=== PATIENT | female | born 1935 | race Caucasian/White ===

== ENCOUNTER 2016-10-10 08:35 | Inpatient (IN) | payer MEDICARE, MEDICAID ==
[2016-10-10] MEDS: TRAMADOL 50 MG PO PRN (20:22)
[2016-10-11] MEDS: LEVOTHYROXINE 100 MCG PO SCH (06:36)
[2016-10-11] MEDS: Aspirin 81 MG Tab.EC PO SCH (08:20)
[2016-10-11] MEDS: Cholecalciferol (Vitamin D3) 1,000 Unit Tab PO SCH (08:20)
[2016-10-11] MEDS: Multivitamins with Iron/Calcium/Folic Acid/Minerals Tab PO SCH (08:20)
[2016-10-11] MEDS: Ferrous Sulfate 325 MG Tab PO SCH (08:20)
[2016-10-11] MEDS: Enoxaparin 30 MG/0.3 ML Syringe SUBCUT SCH (08:21)
[2016-10-11] MEDS: METOPROLOL SUCCINATE 50 MG PO SCH (08:21)
--- NOTE | 2016-10-11 13:37 | PCM.SN ---
- Free Text/Narrative Note: Patient only voiding once a day and dry in between admits she doesn't like to drink water per nursing. Bladder scan ordered she did have a positive urine clt but had no symptoms of UTI so no antibiotics ordered. Patient having a difficult time with transfers, PT working with her currently.
[2016-10-11] MEDS: Melatonin 3 MG Tab PO SCH (19:35)
[2016-10-11] MEDS: TRAMADOL 50 MG PO PRN (19:36)
[2016-10-12] MEDS: Acetaminophen 325 MG Tab PO PRN ×2 (00:02→19:48)
[2016-10-12] MEDS: LEVOTHYROXINE 100 MCG PO SCH (12:07)
[2016-10-12] MEDS: Ferrous Sulfate 325 MG Tab PO SCH (12:07)
[2016-10-12] MEDS: Enoxaparin 30 MG/0.3 ML Syringe SUBCUT SCH (12:08)
[2016-10-12] MEDS: Cholecalciferol (Vitamin D3) 1,000 Unit Tab PO SCH (12:08)
[2016-10-12] MEDS: Aspirin 81 MG Tab.EC PO SCH (12:08)
[2016-10-12] MEDS: Multivitamins with Iron/Calcium/Folic Acid/Minerals Tab PO SCH (12:08)
[2016-10-12] MEDS: METOPROLOL SUCCINATE 50 MG PO SCH (12:08)
[2016-10-12] MEDS: Melatonin 3 MG Tab PO SCH (19:48)
[2016-10-12] MEDS: TRAMADOL 50 MG PO PRN (21:45)
[2016-10-13] MEDS: Acetaminophen 325 MG Tab PO PRN ×2 (02:14→19:55)
[2016-10-13] MEDS: LEVOTHYROXINE 100 MCG PO SCH (07:21)
[2016-10-13] MEDS: Aspirin 81 MG Tab.EC PO SCH (07:44)
[2016-10-13] MEDS: METOPROLOL SUCCINATE 50 MG PO SCH (07:44)
[2016-10-13] MEDS: Cholecalciferol (Vitamin D3) 1,000 Unit Tab PO SCH (07:44)
[2016-10-13] MEDS: Multivitamins with Iron/Calcium/Folic Acid/Minerals Tab PO SCH (07:45)
[2016-10-13] MEDS: Ferrous Sulfate 325 MG Tab PO SCH (07:45)
[2016-10-13] MEDS: Melatonin 3 MG Tab PO SCH (19:55)
[2016-10-13] MEDS: TRAMADOL 50 MG PO PRN (22:20)
[2016-10-14] MEDS: LEVOTHYROXINE 100 MCG PO SCH (06:27)
[2016-10-14 06:53] LABS: BASOPHILS PERCENT AUTO 0.6 % (0.2-1.2); EOSINOPHILS PERCENT AUTO 5.6 % (0.0-4.0); HEMOGLOBIN 9.1 g/dL (12.0-16.0); LYMPHOCYTES PERCENT AUTO 13.2 % (25.0-50.0); MEAN CORPUSCULAR HEMOGLOBIN 22.6 pg (26.0-32.0); MEAN CORPUSCULAR HGB CONC 30.3 g/dL (32.0-36.0); MEAN CORPUSCULAR VOLUME 74.4 fL (78.0-93.0); MONOCYTES PERCENT AUTO 8.2 % (2.0-11.0); NEUTROPHILS PERCENT AUTO 72.4 % (50.0-80.0); RED BLOOD CELL COUNT 4.03 x10^6/uL (4.00-5.50)
[2016-10-14 07:00] LABS: CALCIUM 8.6 mg/dL (8.5-10.1); CREATININE 1.1 mg/dL (0.55-1.02); EST CRCL DRUG DOSING (CG) 33.18 mL/min
[2016-10-14 07:05] LABS: RDW CV 18.4 % (10.0-15.0)
[2016-10-14] MEDS: Ferrous Sulfate 325 MG Tab PO SCH (08:46)
[2016-10-14] MEDS: METOPROLOL SUCCINATE 50 MG PO SCH (08:46)
[2016-10-14] MEDS: Aspirin 81 MG Tab.EC PO SCH (08:46)
[2016-10-14] MEDS: Cholecalciferol (Vitamin D3) 1,000 Unit Tab PO SCH (08:46)
[2016-10-14] MEDS: Multivitamins with Iron/Calcium/Folic Acid/Minerals Tab PO SCH (08:46)
[2016-10-14] MEDS: Acetaminophen 325 MG Tab PO PRN (16:29)
[2016-10-14] MEDS: Melatonin 3 MG Tab PO SCH (19:34)
[2016-10-14] MEDS: TRAMADOL 50 MG PO PRN (19:34)
[2016-10-15] MEDS: TRAMADOL 50 MG PO PRN ×2 (03:25→23:02)
[2016-10-15] MEDS: Acetaminophen 325 MG Tab PO PRN (03:25)
[2016-10-15] MEDS: LEVOTHYROXINE 100 MCG PO SCH (06:28)
[2016-10-15] MEDS: Ferrous Sulfate 325 MG Tab PO SCH (07:52)
[2016-10-15] MEDS: Cholecalciferol (Vitamin D3) 1,000 Unit Tab PO SCH (07:52)
[2016-10-15] MEDS: METOPROLOL SUCCINATE 50 MG PO SCH (07:52)
[2016-10-15] MEDS: Aspirin 81 MG Tab.EC PO SCH (07:52)
[2016-10-15] MEDS: Multivitamins with Iron/Calcium/Folic Acid/Minerals Tab PO SCH (07:52)
[2016-10-15] MEDS: Melatonin 3 MG Tab PO SCH (20:35)
[2016-10-16] MEDS: Acetaminophen 325 MG Tab PO PRN ×2 (00:51→06:46)
[2016-10-16] MEDS: ALPRAZOLAM 0.25 MG PO PRN ×2 (00:51→22:35)
[2016-10-16] MEDS: LEVOTHYROXINE 100 MCG PO SCH (06:46)
[2016-10-16] MEDS: Multivitamins with Iron/Calcium/Folic Acid/Minerals Tab PO SCH (07:50)
[2016-10-16] MEDS: METOPROLOL SUCCINATE 50 MG PO SCH (07:50)
[2016-10-16] MEDS: Cholecalciferol (Vitamin D3) 1,000 Unit Tab PO SCH (07:50)
[2016-10-16] MEDS: Aspirin 81 MG Tab.EC PO SCH (07:51)
[2016-10-16] MEDS: Ferrous Sulfate 325 MG Tab PO SCH (07:51)
--- NOTE | 2016-10-16 16:51 | PN ---
Progress Note for MADDISON TRAN Date: 10/16/2016 Room #: VM.203 SUBJECTIVE: This is an 81-year-old on swing bed after a fall at home with rhabdomyolysis. CK level is still mildly elevated on Friday, but renal function was normal. She has been having a difficult time with getting up and transferring, they are needing to use the lift. She states she had help at home, but the social studies department chair had heard she had changed her same clothes in 1 week. She states she did not need the bathing help at that time, but due to her underlying cerebral palsy and physical limitations, she was not able to care for herself. She had no source. She states she was driving earlier this fall. She has not had any fevers. She has only been voiding about once a day but is not drinking much. OBJECTIVE: Vital Signs: Her temperature is 97.9, pulse 79, blood pressure 123/66, respiratory rate 20, and O2 of 97% on room air. General: She is in no acute distress. Heart: Regular rate and rhythm. Lungs: Sounds are clear to auscultation bilaterally without crackles or wheezes. Abdomen: Positive bowel sounds. Soft and nontender. Extremities: Warm and dry. No edema. The right leg is slightly contracted. I cannot straighten her knee. There is some atrophy. Left leg also has some limited flexion. Mental Status: Alert and orientated x3, but her judgment is quite poor. ASSESSMENT: 1. Acute renal failure and rhabdomyolysis, resolving. We will repeat again lab work again tomorrow. 2. Mechanical fall at home with impaired mobility due to cerebral palsy. The patient is working with therapies. 3. Acute on chronic anemia. Hemoglobin level has been stable, now up to 9.1. She has had chronic iron deficiency and now is on oral iron. 4. Hypothyroidism, treated. 5. Longstanding cognitive disorders, cerebral palsy, and asymptomatic Escherichia bacteria. PLAN: I had a long discussion with the patient and in the end when talking about the prison, she did threaten that she would just rather end her life than go over there because of smell. She otherwise has shown some poor decision making and concern for cognition. Therefore, we will get a full OT assessment. Family conference is scheduled for Friday. I feel this patient would be a vulnerable adult to return home and not really safe in her previous living situation. MKA: 10/16/2016 16:18:37 MODL: 10/16/2016 16:43:36 /[id number]
[2016-10-16] MEDS: Melatonin 3 MG Tab PO SCH (19:37)
[2016-10-16] MEDS: TRAMADOL 50 MG PO PRN (22:35)
[2016-10-17] MEDS: Acetaminophen 325 MG Tab PO PRN (05:22)
[2016-10-17] MEDS: LEVOTHYROXINE 100 MCG PO SCH (06:04)
[2016-10-17 06:52] LABS: BASOPHILS PERCENT AUTO 0.6 % (0.2-1.2); EOSINOPHILS PERCENT AUTO 4.6 % (0.0-4.0); HEMATOCRIT 31.3 % (33.0-47.0); HEMOGLOBIN 9.5 g/dL (12.0-16.0); LYMPHOCYTES PERCENT AUTO 13.9 % (25.0-50.0); MEAN CORPUSCULAR HEMOGLOBIN 22.8 pg (26.0-32.0); MEAN CORPUSCULAR HGB CONC 30.4 g/dL (32.0-36.0); MONOCYTES PERCENT AUTO 10.2 % (2.0-11.0); NEUTROPHILS PERCENT AUTO 70.7 % (50.0-80.0); RDW CV 18.7 % (10.0-15.0); RED BLOOD CELL COUNT 4.17 x10^6/uL (4.00-5.50)
[2016-10-17 07:10] LABS: MEAN CORPUSCULAR VOLUME 75.1 fL (78.0-93.0)
[2016-10-17 07:15] LABS: CALCIUM 8.9 mg/dL (8.5-10.1); CREATININE 1.2 mg/dL (0.55-1.02); EST CRCL DRUG DOSING (CG) 30.41 mL/min
[2016-10-17] MEDS: METOPROLOL SUCCINATE 50 MG PO SCH (07:43)
[2016-10-17] MEDS: Multivitamins with Iron/Calcium/Folic Acid/Minerals Tab PO SCH (07:43)
[2016-10-17] MEDS: Cholecalciferol (Vitamin D3) 1,000 Unit Tab PO SCH (07:43)
[2016-10-17] MEDS: Ferrous Sulfate 325 MG Tab PO SCH (07:43)
[2016-10-17] MEDS: Aspirin 81 MG Tab.EC PO SCH (07:44)
[2016-10-17] MEDS: Melatonin 3 MG Tab PO SCH (19:57)
[2016-10-17] MEDS: TRAMADOL 50 MG PO PRN (22:53)
[2016-10-17] MEDS: ALPRAZOLAM 0.25 MG PO PRN (22:54)
[2016-10-18] MEDS: ALPRAZOLAM 0.25 MG PO PRN ×2 (02:57→19:38)
[2016-10-18] MEDS: Acetaminophen 325 MG Tab PO PRN ×3 (02:57→17:27)
[2016-10-18] MEDS: LEVOTHYROXINE 100 MCG PO SCH (07:24)
[2016-10-18] MEDS: Cholecalciferol (Vitamin D3) 1,000 Unit Tab PO SCH (07:24)
[2016-10-18] MEDS: Aspirin 81 MG Tab.EC PO SCH (07:25)
[2016-10-18] MEDS: METOPROLOL SUCCINATE 50 MG PO SCH (07:25)
[2016-10-18] MEDS: Multivitamins with Iron/Calcium/Folic Acid/Minerals Tab PO SCH (07:25)
[2016-10-18] MEDS: Ferrous Sulfate 325 MG Tab PO SCH (07:25)
[2016-10-18] MEDS: Sulfamethoxazole/Trimethoprim 400-80 MG Tab PO SCH ×2 (17:20→19:39)
[2016-10-18 17:31] LABS: BASOPHILS PERCENT AUTO 0.3 % (0.2-1.2); HEMATOCRIT 32.8 % (33.0-47.0); HEMOGLOBIN 10.1 g/dL (12.0-16.0); LYMPHOCYTES PERCENT AUTO 7.5 % (25.0-50.0); MEAN CORPUSCULAR HEMOGLOBIN 22.9 pg (26.0-32.0); MEAN CORPUSCULAR HGB CONC 30.8 g/dL (32.0-36.0); MEAN CORPUSCULAR VOLUME 74.2 fL (78.0-93.0); MONOCYTES PERCENT AUTO 9.6 % (2.0-11.0); NEUTROPHILS PERCENT AUTO 81.6 % (50.0-80.0); RED BLOOD CELL COUNT 4.42 x10^6/uL (4.00-5.50)
--- NOTE | 2016-10-18 17:36 | PN ---
Progress Note for MADDISON TRAN Date: 10/18/2016 Room #: VM.203 SUBJECTIVE: This is an 81-year-old seen today for the purposes of a family conference. We met the patient at noon, discussed her progress. The patient had only been up walking with therapy just yesterday, she walked about 4 to 6 feet and then had to take breaks. Today her knee is bothering her after walking. She is requiring assistance for transfers. She has expressed to us numerous times that she is not happy here, would like to go home. She is completely refusing the [facility]. She has not had any fevers, but lab work done yesterday had showed a slight increase in her white count to 10.2. Her hemoglobin and kidney function had been stable. She is not having any cough. No breathing problems. No abdominal pain. Otherwise, she did have asymptomatic bacteriuria with E. coli on her acute admission. She was never treated with antibiotics. She has always minimized her symptoms. She is voiding only about once a day, small amounts, but was not having significant residual on bladder scan. OBJECTIVE: Vital signs: Her temperature at 6:00 a.m. this morning was 97.7. I was just called by nursing at 4:30 with a temperature of 101.3. Her pulse was 80, blood pressure 145/66, respiratory rate 20, O2 of 97% on room air. General: She does appear quite pale, full physical assessment was not done as this was a family meeting. ASSESSMENT AND PLAN: 1. Acute fever. The nursing states the patient has not felt well all day, feeling hot and cold. She had not mentioned any of this in her family conference, so I had not performed an exam, now that she has spiked a fever, I recommend labs and blood cultures, and a UA. Given the results of the last urine culture, I will empirically start her on some Bactrim after urine and blood have been drawn, single strength b.i.d. for at least 5 days. I will sign her out to Dr. Bettencourt. 2. Chronic kidney disease with baseline creatinine down to 1.1 and 1.2. Her rhabdomyolysis has resolved. We will continue to monitor. 3. Deconditioning and impaired gait, due to underlying cerebral palsy and recent fall at home. We will continue having her work with therapies. 4. Acute on chronic anemia. Anemia seems stable, she will continue iron. 5. Hypothyroidism, treated. 6. Essential hypertension. Blood pressure is slightly elevated. We will continue her home metoprolol doses. 7. 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 She is recommending 24 hour supervision. Short-term memory has been poor and she has very poor judgment and lack of insight into her disability. PLAN: At this point, we will start antibiotics, we will continue to encourage her to accept the therapy and cares. She is actually been good about working with therapies. She just so wanting to get home, however, with her physical limitations of not even being able to get out of bed, I do not see this as a possibility. The social worker clinical was present. The physical therapist was present and agreed. Her two daughters were present and agreed. We did also discuss the possibility of guardianship and going to the [facility], however, due to financial reasons it sounds like this is not going to be the most doable with the family. The best option would just continue to get treatment in the hospital and ultimately except [facility] care if needed. We will continue to follow. MKA: 10/18/2016 16:49:15 MODL: 10/18/2016 17:11:05 /[id number]
[2016-10-18 17:37] LABS: RDW CV 19.9 % (10.0-15.0)
[2016-10-18 17:46] LABS: CALCIUM 9.5 mg/dL (8.5-10.1); CREATININE 1.3 mg/dL (0.55-1.02); EST CRCL DRUG DOSING (CG) 28.07 mL/min
[2016-10-18] MEDS: Melatonin 3 MG Tab PO SCH (19:38)
[2016-10-18 21:20] LABS: APPEARANCE,URINE SLIGHTLY CLOUDY (CLEAR); BILIRUBIN,URINE NEGATIVE (NEGATIVE); GLUCOSE,URINE NEGATIVE (NEGATIVE); KETONES,URINE NEGATIVE (NEGATIVE); LEUKOCYTE ESTERASE,URINE SMALL (NEGATIVE); NITRITE,URINE NEGATIVE (NEGATIVE); OCCULT BLOOD,URINE SMALL (NEGATIVE); PH,URINE 7.5 (5.0-8.0); PROTEIN,URINE 100 mg/dL (NEGATIVE); UROBILINOGEN,URINE 0.2 EU/dL (0.2)
[2016-10-18 21:36] LABS: BACTERIA,URINE FEW /HPF (NEGATIVE); MUCUS,URINE RARE /LPF (NEGATIVE)
[2016-10-19] MEDS: ALPRAZOLAM 0.25 MG PO PRN (02:47)
[2016-10-19] MEDS: Acetaminophen 325 MG Tab PO PRN (05:15)
[2016-10-19] MEDS: LEVOTHYROXINE 100 MCG PO SCH (06:34)
[2016-10-19] MEDS: Ferrous Sulfate 325 MG Tab PO SCH (07:44)
[2016-10-19] MEDS: Aspirin 81 MG Tab.EC PO SCH (07:44)
[2016-10-19] MEDS: Sulfamethoxazole/Trimethoprim 400-80 MG Tab PO SCH ×2 (07:44→19:34)
[2016-10-19] MEDS: Multivitamins with Iron/Calcium/Folic Acid/Minerals Tab PO SCH (07:44)
[2016-10-19] MEDS: METOPROLOL SUCCINATE 50 MG PO SCH (07:45)
[2016-10-19] MEDS: Cholecalciferol (Vitamin D3) 1,000 Unit Tab PO SCH (07:45)
[2016-10-19] MEDS: TRAMADOL 50 MG PO PRN (16:21)
[2016-10-19] MEDS: Melatonin 3 MG Tab PO SCH (19:34)
[2016-10-20] MEDS: TRAMADOL 50 MG PO PRN ×2 (05:26→09:46)
[2016-10-20] MEDS: LEVOTHYROXINE 100 MCG PO SCH (06:28)
[2016-10-20] MEDS: Cholecalciferol (Vitamin D3) 1,000 Unit Tab PO SCH (08:38)
[2016-10-20] MEDS: Sulfamethoxazole/Trimethoprim 400-80 MG Tab PO SCH ×2 (08:39→19:54)
[2016-10-20] MEDS: Aspirin 81 MG Tab.EC PO SCH (08:39)
[2016-10-20] MEDS: METOPROLOL SUCCINATE 50 MG PO SCH (08:39)
[2016-10-20] MEDS: Multivitamins with Iron/Calcium/Folic Acid/Minerals Tab PO SCH (08:39)
[2016-10-20] MEDS: Ferrous Sulfate 325 MG Tab PO SCH (08:39)
[2016-10-20] MEDS: Melatonin 3 MG Tab PO SCH (19:54)
[2016-10-21] MEDS: LEVOTHYROXINE 100 MCG PO SCH (06:13)
[2016-10-21] MEDS: Multivitamins with Iron/Calcium/Folic Acid/Minerals Tab PO SCH (07:48)
[2016-10-21] MEDS: Ferrous Sulfate 325 MG Tab PO SCH (07:48)
[2016-10-21] MEDS: Cholecalciferol (Vitamin D3) 1,000 Unit Tab PO SCH (07:49)
[2016-10-21] MEDS: METOPROLOL SUCCINATE 50 MG PO SCH (07:49)
[2016-10-21] MEDS: Aspirin 81 MG Tab.EC PO SCH (07:49)
[2016-10-21] MEDS: Sulfamethoxazole/Trimethoprim 400-80 MG Tab PO SCH ×2 (07:49→20:05)
--- NOTE | 2016-10-21 08:46 | PCM.SN ---
- Free Text/Narrative Note: Patient denies coughing, no fevers since Friday. No abdominal pain or dysuria. Doing well on Bactrim plan to d/c it after 5 days of treatment with last dose Friday.
[2016-10-21] MEDS: Melatonin 3 MG Tab PO SCH (20:05)
[2016-10-22] MEDS: TRAMADOL 50 MG PO PRN ×2 (00:19→20:43)
[2016-10-22] MEDS: ALPRAZOLAM 0.25 MG PO PRN ×2 (00:19→20:43)
[2016-10-22 06:28] LABS: BASOPHILS PERCENT AUTO 0.7 % (0.2-1.2); HEMATOCRIT 28.1 % (33.0-47.0); HEMOGLOBIN 8.8 g/dL (12.0-16.0); LYMPHOCYTES PERCENT AUTO 16.7 % (25.0-50.0); MEAN CORPUSCULAR HEMOGLOBIN 23.3 pg (26.0-32.0); MEAN CORPUSCULAR HGB CONC 31.3 g/dL (32.0-36.0); MEAN CORPUSCULAR VOLUME 74.5 fL (78.0-93.0); MONOCYTES PERCENT AUTO 13.1 % (2.0-11.0); NEUTROPHILS PERCENT AUTO 63.7 % (50.0-80.0); RDW CV 19.3 % (10.0-15.0); RED BLOOD CELL COUNT 3.77 x10^6/uL (4.00-5.50)
[2016-10-22 06:43] LABS: CALCIUM 8.6 mg/dL (8.5-10.1); CREATININE 1.7 mg/dL (0.55-1.02); EOSINOPHILS PERCENT AUTO 5.8 % (0.0-4.0); EST CRCL DRUG DOSING (CG) 21.47 mL/min
[2016-10-22] MEDS: LEVOTHYROXINE 100 MCG PO SCH (07:45)
[2016-10-22] MEDS: METOPROLOL SUCCINATE 50 MG PO SCH (07:45)
[2016-10-22] MEDS: Sulfamethoxazole/Trimethoprim 400-80 MG Tab PO SCH (07:45)
[2016-10-22] MEDS: Cholecalciferol (Vitamin D3) 1,000 Unit Tab PO SCH (07:45)
[2016-10-22] MEDS: Multivitamins with Iron/Calcium/Folic Acid/Minerals Tab PO SCH (07:46)
[2016-10-22] MEDS: Aspirin 81 MG Tab.EC PO SCH (07:46)
[2016-10-22] MEDS: Ferrous Sulfate 325 MG Tab PO SCH (07:46)
[2016-10-22] MEDS: Melatonin 3 MG Tab PO SCH (20:43)
[2016-10-23] MEDS: LEVOTHYROXINE 100 MCG PO SCH (06:31)
[2016-10-23 07:08] LABS: HEMATOCRIT 29.2 % (33.0-47.0); HEMOGLOBIN 8.9 g/dL (12.0-16.0); MEAN CORPUSCULAR HEMOGLOBIN 22.9 pg (26.0-32.0); MEAN CORPUSCULAR HGB CONC 30.5 g/dL (32.0-36.0); MEAN CORPUSCULAR VOLUME 75.1 fL (78.0-93.0); RDW CV 18.7 % (10.0-15.0); RED BLOOD CELL COUNT 3.89 x10^6/uL (4.00-5.50)
[2016-10-23 07:27] LABS: CALCIUM 8.8 mg/dL (8.5-10.1); CREATININE 1.6 mg/dL (0.55-1.02); EST CRCL DRUG DOSING (CG) 22.81 mL/min
[2016-10-23 07:50] LABS: BASOPHILS PERCENT MAN 2 % (0-1); EOSINOPHILS PERCENT MAN 5 % (0-4); SEG NEUTROPHILS PERCENT MAN 70 % (50-80); TOTAL CELLS COUNTED 100
[2016-10-23 07:52] LABS: OVALOCYTES MODERATE
[2016-10-23] MEDS: Cholecalciferol (Vitamin D3) 1,000 Unit Tab PO SCH (08:11)
[2016-10-23] MEDS: METOPROLOL SUCCINATE 50 MG PO SCH (08:11)
[2016-10-23] MEDS: Ferrous Sulfate 325 MG Tab PO SCH (08:11)
[2016-10-23] MEDS: Aspirin 81 MG Tab.EC PO SCH (08:11)
[2016-10-23] MEDS: Multivitamins with Iron/Calcium/Folic Acid/Minerals Tab PO SCH (08:11)
[2016-10-23] MEDS: Acetaminophen 325 MG Tab PO PRN (19:16)
[2016-10-23] MEDS: TRAMADOL 50 MG PO PRN (19:16)
[2016-10-23] MEDS: Melatonin 3 MG Tab PO SCH (19:16)
[2016-10-23] MEDS: ALPRAZOLAM 0.25 MG PO PRN (19:16)
[2016-10-24] MEDS: LEVOTHYROXINE 100 MCG PO SCH (06:03)
[2016-10-24] MEDS: Cholecalciferol (Vitamin D3) 1,000 Unit Tab PO SCH (07:34)
[2016-10-24] MEDS: METOPROLOL SUCCINATE 50 MG PO SCH (07:35)
[2016-10-24] MEDS: Aspirin 81 MG Tab.EC PO SCH (07:35)
[2016-10-24] MEDS: Ferrous Sulfate 325 MG Tab PO SCH (07:35)
[2016-10-24] MEDS: Multivitamins with Iron/Calcium/Folic Acid/Minerals Tab PO SCH (07:35)
[2016-10-24] MEDS: Melatonin 3 MG Tab PO SCH (19:26)
[2016-10-25] MEDS: LEVOTHYROXINE 100 MCG PO SCH (06:06)
[2016-10-25] MEDS: Ferrous Sulfate 325 MG Tab PO SCH (07:32)
[2016-10-25] MEDS: METOPROLOL SUCCINATE 50 MG PO SCH (07:32)
[2016-10-25] MEDS: Cholecalciferol (Vitamin D3) 1,000 Unit Tab PO SCH (07:32)
[2016-10-25] MEDS: Aspirin 81 MG Tab.EC PO SCH (07:33)
[2016-10-25] MEDS: Multivitamins with Iron/Calcium/Folic Acid/Minerals Tab PO SCH (07:33)
[2016-10-25] MEDS: Polyethylene Glycol 3350 Powder 17 GM Packet PO SCH (10:52)
[2016-10-25] MEDS: Acetaminophen 325 MG Tab PO PRN (14:45)
[2016-10-25] MEDS: Melatonin 3 MG Tab PO SCH (19:34)
[2016-10-25] MEDS: ALPRAZOLAM 0.25 MG PO PRN (19:34)
[2016-10-26] MEDS: LEVOTHYROXINE 100 MCG PO SCH (07:20)
[2016-10-26] MEDS: Polyethylene Glycol 3350 Powder 17 GM Packet PO SCH (07:30)
[2016-10-26] MEDS: Ferrous Sulfate 325 MG Tab PO SCH (07:32)
[2016-10-26] MEDS: METOPROLOL SUCCINATE 50 MG PO SCH (07:32)
[2016-10-26] MEDS: Multivitamins with Iron/Calcium/Folic Acid/Minerals Tab PO SCH (07:32)
[2016-10-26] MEDS: Cholecalciferol (Vitamin D3) 1,000 Unit Tab PO SCH (07:32)
[2016-10-26] MEDS: Aspirin 81 MG Tab.EC PO SCH (07:32)
[2016-10-26] MEDS: Melatonin 3 MG Tab PO SCH (19:34)
[2016-10-26] MEDS: ALPRAZOLAM 0.25 MG PO PRN (19:34)
[2016-10-27] MEDS: LEVOTHYROXINE 100 MCG PO SCH ×2 (05:56→07:41)
[2016-10-27] MEDS: Polyethylene Glycol 3350 Powder 17 GM Packet PO SCH (07:41)
[2016-10-27] MEDS: Cholecalciferol (Vitamin D3) 1,000 Unit Tab PO SCH (07:42)
[2016-10-27] MEDS: METOPROLOL SUCCINATE 50 MG PO SCH (07:42)
[2016-10-27] MEDS: Ferrous Sulfate 325 MG Tab PO SCH (07:43)
[2016-10-27] MEDS: Aspirin 81 MG Tab.EC PO SCH (07:43)
[2016-10-27] MEDS: Multivitamins with Iron/Calcium/Folic Acid/Minerals Tab PO SCH (07:43)
[2016-10-27] MEDS: ALPRAZOLAM 0.25 MG PO PRN (19:35)
[2016-10-27] MEDS: Melatonin 3 MG Tab PO SCH (19:35)
[2016-10-27] MEDS: TRAMADOL 50 MG PO PRN (21:21)
[2016-10-27] MEDS: Acetaminophen 325 MG Tab PO PRN (21:21)
[2016-10-28] MEDS: LEVOTHYROXINE 100 MCG PO SCH (06:39)
[2016-10-28] MEDS: Cholecalciferol (Vitamin D3) 1,000 Unit Tab PO SCH (07:40)
[2016-10-28] MEDS: Ferrous Sulfate 325 MG Tab PO SCH (07:40)
[2016-10-28] MEDS: Multivitamins with Iron/Calcium/Folic Acid/Minerals Tab PO SCH (07:41)
[2016-10-28] MEDS: Aspirin 81 MG Tab.EC PO SCH (07:41)
[2016-10-28] MEDS: METOPROLOL SUCCINATE 50 MG PO SCH (07:41)
[2016-10-28] MEDS: Polyethylene Glycol 3350 Powder 17 GM Packet PO SCH (07:41)
[2016-10-28] MEDS: Melatonin 3 MG Tab PO SCH (21:30)
[2016-10-28] MEDS: TRAMADOL 50 MG PO PRN (23:22)
[2016-10-29] MEDS: LEVOTHYROXINE 100 MCG PO SCH (06:28)
[2016-10-29] MEDS: Polyethylene Glycol 3350 Powder 17 GM Packet PO SCH (07:35)
[2016-10-29] MEDS: Cholecalciferol (Vitamin D3) 1,000 Unit Tab PO SCH (07:35)
[2016-10-29] MEDS: METOPROLOL SUCCINATE 50 MG PO SCH (07:35)
[2016-10-29] MEDS: Multivitamins with Iron/Calcium/Folic Acid/Minerals Tab PO SCH (07:36)
[2016-10-29] MEDS: Ferrous Sulfate 325 MG Tab PO SCH (07:36)
[2016-10-29] MEDS: Aspirin 81 MG Tab.EC PO SCH (07:36)
[2016-10-29] MEDS: Melatonin 3 MG Tab PO SCH (19:29)
--- NOTE | 2016-10-29 23:22 | DISCH ---
PRIMARY DISCHARGE DIAGNOSES: 1. Fall at home with acute rhabdomyolysis. 2. Acute renal failure secondary to rhabdomyolysis. 3. Acute on chronic anemia with history of iron deficiency. 4. Hypothyroidism. 5. Cognitive disorder. 6. Escherichia coli bacteremia treated. 7. Impaired gait secondary to cerebral palsy. REASON FOR THIS ADMISSION: On the date of admission, this 81-year-old female who had been in to the doctor for many years, was found down at home. She had an elevated CK and was in acute renal failure. She got IV fluids and her condition improved. She was found to have some urinary hesitancy and UA was done. Initially she was not having any symptoms and the culture did grow E coli, then she did spike a fever and had a repeat UA on 10/18. She was treated with Bactrim for 5 days at that point. Her fever resolved without any further problems. It was on the date of 10/18 that we had a family conference, patient was working with therapy but needed to be able to ambulate probably around 30 feet at home, she was unable to do this, she was totally unwilling to go to a assisted. We talked about getting a guardianship for the patient, as she was felt to be a vulnerable adult at home. The patient was working with OT and did have a cognitive assessment showing her to have mini-mental of 23/30 and 4.2/5.8 on her ACL requiring 24-hour supervision. The patient had made multiple threats during her stay that if she would go to the assisted, she would kill herself. I feel that currently she probably could not act on that as she is impaired with her mobility; however, I do feel that the chance of her bringing self-harm are not 0, therefore a level 2 screening was triggered for the patient. food preparation worker has been working with the patient and the family. We will also file for vulnerable adult for the patient as I feel she has placed herself at self-harm. Her judgment is very poor. She tells us that she can do things that she cannot. I have seen her walk with assistance of PT and there is just no way she can even walk 5 feet by herself, she is quite a fall risk and she is quite forgetful and unsafe in her own home. Otherwise during her stay here, she was continued on her same home medications. She was getting occasional tramadol for pain which she had been on for many years. She also had Xanax ordered to help with any agitation. LABORATORY DATA: Lab work was monitored and last hemoglobin was 8.9 on 10/23 but the hemoglobin is pending for tomorrow. Creatinine had bumped back up to 1.6 but again a creatinine is pending for tomorrow. The best creatinine was 1.1 and she had a history of chronic kidney disease as well. Otherwise, she was taking and tolerating iron. DISCHARGE PLANS AND INSTRUCTIONS: The patient is going over to self-pay swing, pending a level 2 screen and also the vulnerable adult evaluation. She is completely opposed to going over to the assisted. She thinks she can just go home by herself and she can walk right out of here which is entirely not true. Otherwise, the patient was on some stool softeners. She had some constipation during her stay which was probably due to the multivitamin with iron. PHYSICAL EXAMINATION: Vital Signs: Discharging vitals when I examined her temperature 98.5, pulse 84, blood pressure 130/85, respiratory rate 18, and O2 of 96% on room air. General: She is in no acute distress. Heart: Regular rate and rhythm. Lungs: Sounds are clear to auscultation bilaterally without crackles or wheezes. Extremities: She has right leg deformity which is not new with some contracture over the knee. She has no edema. Mental Status: She is alert, but she is disorientated to time. She is aware of the month as October; however, she thinks she has only been in the hospital like a week or so, like since [place] and really in reality she has been here over 3 weeks. She does remember me as her doctor. DISCHARGE PLANS AND INSTRUCTIONS: Going over to swing bed on self-pay. No medication changes are made today. counseling services manager to continue to follow. I did stress to her that it would be important to get up to the assisted where she could restart PT again, but again she continues to refuse this. CORA: 10/29/2016 17:05:55 MODL: 10/29/2016 23:12:44 /[id number]
[2016-10-30] MEDS: TRAMADOL 50 MG PO PRN (06:38)
[2016-10-30] MEDS: LEVOTHYROXINE 100 MCG PO SCH (06:39)
[2016-10-30] MEDS: Aspirin 81 MG Tab.EC PO SCH (07:48)
[2016-10-30] MEDS: METOPROLOL SUCCINATE 50 MG PO SCH (07:49)
[2016-10-30] MEDS: Multivitamins with Iron/Calcium/Folic Acid/Minerals Tab PO SCH (07:49)
[2016-10-30] MEDS: Cholecalciferol (Vitamin D3) 1,000 Unit Tab PO SCH (07:49)
[2016-10-30] MEDS: Polyethylene Glycol 3350 Powder 17 GM Packet PO SCH (07:49)
[2016-10-30] MEDS: Ferrous Sulfate 325 MG Tab PO SCH (07:49)
[2016-10-30] MEDS: Melatonin 3 MG Tab PO SCH ×2 (17:26→19:16)
[2016-10-30] MEDS: Acetaminophen 325 MG Tab PO PRN (23:10)
[2016-10-31] MEDS: Cholecalciferol (Vitamin D3) 1,000 Unit Tab PO SCH (07:23)
[2016-10-31] MEDS: Ferrous Sulfate 325 MG Tab PO SCH (07:24)
[2016-10-31] MEDS: LEVOTHYROXINE 100 MCG PO SCH (07:24)
[2016-10-31] MEDS: Aspirin 81 MG Tab.EC PO SCH (07:24)
[2016-10-31] MEDS: Multivitamins with Iron/Calcium/Folic Acid/Minerals Tab PO SCH (07:24)
[2016-10-31] MEDS: METOPROLOL SUCCINATE 50 MG PO SCH (07:24)
[2016-10-31] MEDS: Polyethylene Glycol 3350 Powder 17 GM Packet PO SCH ×2 (07:26→07:33)
[2016-10-31] MEDS: Melatonin 3 MG Tab PO SCH (19:35)
[2016-10-31] MEDS: TRAMADOL 50 MG PO PRN (21:48)
[2016-11-01] MEDS: LEVOTHYROXINE 100 MCG PO SCH (06:57)
[2016-11-01] MEDS: Cholecalciferol (Vitamin D3) 1,000 Unit Tab PO SCH (07:01)
[2016-11-01] MEDS: Multivitamins with Iron/Calcium/Folic Acid/Minerals Tab PO SCH (07:01)
[2016-11-01] MEDS: Ferrous Sulfate 325 MG Tab PO SCH (07:02)
[2016-11-01] MEDS: Metoprolol Succinate 25 MG Tab.ER (OWN SUPPLY) PO SCH (07:02)
[2016-11-01] MEDS: Aspirin 81 MG Tab.EC PO SCH (07:02)
[2016-11-01] MEDS: Polyethylene Glycol 3350 Powder 17 GM Packet PO SCH (07:03)
[2016-11-01] MEDS: Melatonin 3 MG Tab PO SCH (19:35)
[2016-11-01] MEDS: ALPRAZOLAM 0.25 MG PO PRN (19:35)
[2016-11-02] MEDS: LEVOTHYROXINE 100 MCG PO SCH (07:17)
[2016-11-02] MEDS: Polyethylene Glycol 3350 Powder 17 GM Packet PO SCH (08:33)
[2016-11-02] MEDS: Ferrous Sulfate 325 MG Tab PO SCH (08:33)
[2016-11-02] MEDS: Cholecalciferol (Vitamin D3) 1,000 Unit Tab PO SCH (08:33)
[2016-11-02] MEDS: Metoprolol Succinate 25 MG Tab.ER (OWN SUPPLY) PO SCH (08:33)
[2016-11-02] MEDS: Aspirin 81 MG Tab.EC PO SCH (08:33)
[2016-11-02] MEDS: Multivitamins with Iron/Calcium/Folic Acid/Minerals Tab PO SCH (08:33)
[2016-11-02] MEDS: Melatonin 3 MG Tab PO SCH (19:37)
[2016-11-02] MEDS: ALPRAZOLAM 0.25 MG PO PRN (19:37)
[2016-11-02] MEDS: TRAMADOL 50 MG PO PRN (21:36)
[2016-11-02] MEDS: Acetaminophen 325 MG Tab PO PRN (21:37)
[2016-11-03] MEDS: LEVOTHYROXINE 100 MCG PO SCH (06:20)
[2016-11-03] MEDS: Aspirin 81 MG Tab.EC PO SCH (08:27)
[2016-11-03] MEDS: Multivitamins with Iron/Calcium/Folic Acid/Minerals Tab PO SCH (08:27)
[2016-11-03] MEDS: Metoprolol Succinate 25 MG Tab.ER (OWN SUPPLY) PO SCH (08:27)
[2016-11-03] MEDS: Ferrous Sulfate 325 MG Tab PO SCH (08:27)
[2016-11-03] MEDS: Cholecalciferol (Vitamin D3) 1,000 Unit Tab PO SCH (08:27)
[2016-11-03] MEDS: Polyethylene Glycol 3350 Powder 17 GM Packet PO SCH (08:28)
[2016-11-03] MEDS: ALPRAZOLAM 0.25 MG PO PRN (19:33)
[2016-11-03] MEDS: Melatonin 3 MG Tab PO SCH (19:33)
[2016-11-04] MEDS: TRAMADOL 50 MG PO PRN ×2 (01:08→19:50)
[2016-11-04] MEDS: Acetaminophen 325 MG Tab PO PRN (01:09)
[2016-11-04] MEDS: LEVOTHYROXINE 100 MCG PO SCH ×2 (05:07→06:42)
[2016-11-04] MEDS: Metoprolol Succinate 25 MG Tab.ER (OWN SUPPLY) PO SCH (07:47)
[2016-11-04] MEDS: Aspirin 81 MG Tab.EC PO SCH (07:47)
[2016-11-04] MEDS: Ferrous Sulfate 325 MG Tab PO SCH (07:47)
[2016-11-04] MEDS: Cholecalciferol (Vitamin D3) 1,000 Unit Tab PO SCH (07:47)
[2016-11-04] MEDS: Multivitamins with Iron/Calcium/Folic Acid/Minerals Tab PO SCH (07:47)
[2016-11-04] MEDS: Polyethylene Glycol 3350 Powder 17 GM Packet PO SCH (07:47)
[2016-11-04] MEDS: Melatonin 3 MG Tab PO SCH (19:49)
[2016-11-04] MEDS: ALPRAZOLAM 0.25 MG PO PRN (19:49)
[2016-11-05] MEDS: LEVOTHYROXINE 100 MCG PO SCH (06:47)
[2016-11-05] MEDS: Metoprolol Succinate 25 MG Tab.ER (OWN SUPPLY) PO SCH (07:26)
[2016-11-05] MEDS: Multivitamins with Iron/Calcium/Folic Acid/Minerals Tab PO SCH (07:27)
[2016-11-05] MEDS: Cholecalciferol (Vitamin D3) 1,000 Unit Tab PO SCH (07:27)
[2016-11-05] MEDS: Aspirin 81 MG Tab.EC PO SCH (07:27)
[2016-11-05] MEDS: Ferrous Sulfate 325 MG Tab PO SCH (07:27)
[2016-11-05] MEDS: Polyethylene Glycol 3350 Powder 17 GM Packet PO SCH (07:27)
--- NOTE | 2016-11-05 11:05 | PN ---
Progress Note for MADDISON TRAN Date: 11/05/2016 Room #: VM.203 SUBJECTIVE: This is an 81-year-old on swing bed, recovering after a fall at home. She had transitioned over from a skilled swing bed from 10/10 through 10/29 on self-pay. The patient is now not getting any therapy. She had been refusing to go to the [facility]. She actually said she commit suicide if we sent her up there, then she said that she never said that. This triggered a level 2 psych screening, which she passed. Family is working on guardianship. The patient has not had any pain. She is not a reliable historian. She has some cognitive disorder, mini mental was only a 23/30. PHYSICAL EXAMINATION: Vital Signs: Today, her blood pressure was 124/75, respiratory rate 18, O2 of 97% on room air, pulse 82, and temperature 99.1. General: She is in no acute distress. Heart: Regular rate and rhythm. Lungs: Sounds are clear to auscultation bilaterally without crackles or wheezes. ASSESSMENT: 1. Acute renal failure with rhabdomyolysis, improving. We will check lab work tomorrow. 2. Chronic anemia due to iron deficiency, on iron. 3. Chronic kidney disease. 4. Hypothyroidism. 5. 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 6. Escherichia coli bacteriuria that was treated. 7. Impaired gait secondary to cerebral palsy with falls at home. PLAN: The patient will be transferred up to [facility] tomorrow. She continues to refuse this, but I explained to her it is in her best interest, so she can restart and continue with therapies their. Her family is in agreement to this plan. They are working on guardianship. She is vulnerable adult and completely unsafe to return to her home environment. She lacks judgment and insight into her illness and her memory impairment. She is not an appropriate decision maker. MKA: 11/05/2016 10:34:58 MODL: 11/05/2016 10:57:48 /[id number]
[2016-11-05] MEDS: Acetaminophen 325 MG Tab PO PRN (19:31)
[2016-11-05] MEDS: Melatonin 3 MG Tab PO SCH (19:31)
[2016-11-05] MEDS: TRAMADOL 50 MG PO PRN (19:32)
[2016-11-05] MEDS: ALPRAZOLAM 0.25 MG PO PRN (19:34)
[2016-11-06 06:01] VITALS: BP 126/68
[2016-11-06] MEDS: LEVOTHYROXINE 100 MCG PO SCH (06:24)
[2016-11-06 06:45] LABS: BASOPHILS PERCENT AUTO 0.5 % (0.2-1.2); EOSINOPHILS PERCENT AUTO 5.1 % (0.0-4.0); HEMATOCRIT 30.2 % (33.0-47.0); HEMOGLOBIN 9.1 g/dL (12.0-16.0); MEAN CORPUSCULAR HEMOGLOBIN 23.4 pg (26.0-32.0); MEAN CORPUSCULAR HGB CONC 30.1 g/dL (32.0-36.0); MEAN CORPUSCULAR VOLUME 77.6 fL (78.0-93.0); NEUTROPHILS PERCENT AUTO 64.4 % (50.0-80.0); RED BLOOD CELL COUNT 3.89 x10^6/uL (4.00-5.50)
[2016-11-06 07:09] LABS: CALCIUM 8.7 mg/dL (8.5-10.1); CREATININE 1.2 mg/dL (0.55-1.02); EST CRCL DRUG DOSING (CG) 30.41 mL/min
[2016-11-06 07:11] LABS: RDW CV 18.7 % (10.0-15.0)
[2016-11-06] MEDS: Metoprolol Succinate 25 MG Tab.ER (OWN SUPPLY) PO SCH (07:51)
[2016-11-06] MEDS: Ferrous Sulfate 325 MG Tab PO SCH (07:52)
[2016-11-06] MEDS: Multivitamins with Iron/Calcium/Folic Acid/Minerals Tab PO SCH (07:52)
[2016-11-06] MEDS: Polyethylene Glycol 3350 Powder 17 GM Packet PO SCH (07:52)
[2016-11-06] MEDS: Aspirin 81 MG Tab.EC PO SCH (07:52)
[2016-11-06] MEDS: Cholecalciferol (Vitamin D3) 1,000 Unit Tab PO SCH (07:52)
[2016-11-06] MEDS: ALPRAZOLAM 0.25 MG PO PRN (12:01)
[2016-11-07] MEDS ORDERED: ALPRAZolam 0.25 MG Tab PO ONE (09:00)
--- NOTE | 2016-11-08 08:49 | DISCH ---
PRIMARY DISCHARGE DIAGNOSES: 1. Fall with acute rhabdomyolysis, acute renal failure secondary to rhabdomyolysis, improved, and creatinine 1.2 on discharge. 2. Chronic kidney disease, stage III. 3. Acute on chronic anemia secondary to iron deficiency with improving hemoglobin at 9.1 on discharge. 4. Escherichia coli, urinary tract infection, treated. 5. Cognitive disorder with likely dementia with behavioral disturbance. Mini- mental status exam completed during this stay was . 6. Impaired gait secondary to cerebral palsy affecting the right leg. 7. Hypothyroidism, treated. REASON FOR ADMISSION: On the date of admission, this 81-year-old female, who previously lived independently at home had suffered a fall. She was down for long enough that she was in renal failure and had an elevated CK for rhabdomyolysis. She was treated with IV fluids and her overall condition improved. The patient completed PT during her stay here and had plateaued, she was only walking about 5 feet and it was not felt she was safe to return home; therefore, she was recommended to go to the alf for further care, which she absolutely refused. We had a family meeting or earlier in her stay and the decision was that they would pursue guardianship; however, that is quite a bit extensive and long process and I did deem her incapable of making these decisions with poor judgment. She did trigger a level 2 psych screening because of her continued reports that she would commit suicide if she had to go to the alf, but later she denied that she ever said that. She is very forgetful. Her short term memory is poor. She thought she had been at the Hospital only a few days or a week and she had been here nearly a month. Otherwise, decision was made to send the patient over to [facility]. She had been receiving some Xanax for anxiety, which was basically her only new medication other than melatonin for sleep and senna and MiraLAX for constipation. The patient was recommended to go over to [facility] for further physical and occupational therapies. DISCHARGE PLANS AND INSTRUCTIONS: She is going over to the [facility]. She will have PT and OT there. She should be seen by psych for a consult. She will have a CBC and BMP on discharge. She will be on iron also on discharge. She was on tramadol previously for pain and may continue this at discharge. I will follow up with her on 11/18/2016 on alf rounds. PHYSICAL EXAMINATION: Vital Signs: On discharge, when I last examined her, her vitals were 98.3, pulse 77, blood pressure 126/68, respiratory rate 20, O2 of 93% on room air. General: She is in no acute distress. Heart: Regular rate and rhythm. Lungs: Sounds are clear to auscultation bilaterally without crackles or wheezes. Extremities: Warm and dry. No edema. She continues to have some deformity over the right leg. Mental Status: She is alert, but she is disoriented to time based on that she is not sure how long she has been in the hospital, but she does remember me as her doctor. MKA: 11/06/2016 08:42:41 MODL: 11/07/2016 00:23:00 /[id number]
== END 2016-11-06 12:15 | DRG 683 ==
LOC: VM.MS 08:35
PROVIDERS: ADMIT Internal Medicine; ATTEND Internal Medicine
DX: N17.9 Acute kidney failure, unspecified (principal); M62.82 Rhabdomyolysis; F03.91 Unspecified dementia, unspecified severity, with behavioral disturbance; N39.0 Urinary tract infection, site not specified; E03.9 Hypothyroidism, unspecified; G80.9 Cerebral palsy, unspecified; D50.9 Iron deficiency anemia, unspecified; R29.6 Repeated falls; Z91.81 History of falling; R50.9 Fever, unspecified; I12.9 Hypertensive chronic kidney disease with stage 1 through stage 4 chronic kidney disease, or unspecified chronic kidney disease; N18.3 Chronic kidney disease, stage 3 (moderate); B96.20 Unspecified Escherichia coli [E. coli] as the cause of diseases classified elsewhere
CPT/HCPCS: 36415; 80048; 81001; 82550; 85025; 87040; 87086; 87088; 87186; 97003-GO; 97110-GP; 97116-GP; 97530-GP; 97532-GO; A9270-GY; J1650

== ENCOUNTER 2020-07-11 12:20 | Emergency (ER) | payer MEDICARE, MEDICAID ==
[2020-07-11 12:28] VITALS: BP 101/55; PULSE 88
--- NOTE | 2020-07-11 13:29 | CT ---
[id number] CT/CT Head WO IV EXAM: NONCONTRAST HEAD CT INDICATION: FELL OUT OF WHEELCHAIR, STRUCK HEAD. COMPARISON: None. DISCUSSION: Anterior scalp laceration. 50 by 25 mm left middle cerebral artery territory infarct involving the left parietal, occipital and temporal lobes. Mild to moderate generalized atrophy and chronic small vessel ischemic changes including white matter hypoattenuation and bilateral basal ganglia and thalamic lacunar infarcts. Small chronic bilateral cerebellar infarcts. No mass effect, midline shift, acute hemorrhage, or hydrocephalus. The orbits and paranasal sinuses are unremarkable. IMPRESSION: 1. Subacute appearing left MCA territory infarct. No evidence of acute intracranial trauma. Darin Chavez MD 07/11/20 [id number] Thank you for allowing us to participate in the care of your patient.
--- NOTE | 2020-07-11 13:33 | CR ---
[id number] RAD/RAD Foot Left 3V Min EXAM: RAD Foot Left 3V Min INDICATION: FELL OUT OF WHEELCHAIR, LT FOOT SWOLLEN AND BRUISED COMPARISON: None. DISCUSSION: Acute mildly displaced and angulated fractures of the first through fifth metatarsals. Mild metatarsus primus varus and hallux valgus. Osteopenia. 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 Soft tissue swelling throughout the dorsum of the foot. IMPRESSION: 1. Acute mildly angulated and displaced first through fifth metatarsal fractures. Darin Chavez MD 07/11/20 1968 Thank you for allowing us to participate in the care of your patient.
[2020-07-11] MEDS ORDERED: Acetaminophen/HYDROcodone 325-10 MG Tab PO ONE (14:50)
--- NOTE | 2020-07-11 18:28 | EDM.PDOC ---
ED HPI GENERAL MEDICAL PROBLEM - General Chief Complaint: Laceration Time Seen by Provider: 07/11/20 12:22 Source of Information: Reports: Patient History Limitations: Reports: No Limitations - History of Present Illness INITIAL COMMENTS - FREE TEXT/NARRATIVE: Pt. presents to ER via [facility] van with attendant from [facility]. Pt. had a fall today at the correction. He fell forward and struck his head, sustaining a laceration to her forehead and injury to L foot. Denies any neck pain. No discomfort in her upper extremities. Denies any chest or abdominal discomfort. Denies any pelvic discomfort. She states that the only discomfort she has in her lower extremities is isolated to her L foot. Nursing staff noted that she had a large area of edema/hematoma to her L foot. Pt. denies any headache, nausea, vomiting. She has not had a change in her baseline mental status. Pt. has been unable to ambulate for several years and is confined to a wheelchair. She is lifted with a Radha lift. Onset: Today Onset Date: 07/11/20 Location: Reports: Head, Lower Extremity, Left - Related Data Allergies Allergy/AdvReac Type Severity Reaction Status Date / Time No Known Allergies Allergy Verified 07/11/20 12:33 Home Meds: Home Meds Cholecalciferol (Vitamin D3) [Vitamin D3] 5,000 units PO DAILY 10/07/16 [History] Levothyroxine [Synthroid] 100 mcg PO DAILY 10/07/16 [History] Metoprolol Succinate [Toprol XL] 50 mg PO DAILY 10/07/16 [History] Multivitamin [Multi-Vitamin Daily] 1 tab PO DAILY 10/07/16 [History] Acetaminophen [Tylenol] 650 mg PO DAILY 10/10/16 [History] Melatonin 3 mg PO BEDTIME #30 tablet 11/05/16 [Rx] ALPRAZolam [Xanax] 0.5 mg PO DAILY 07/11/20 [History] Acetaminophen 650 mg PO Q4H PRN 07/11/20 [History] Docusate Sodium/Sennosides [Senna Plus] 1 tab PO DAILY 07/11/20 [History] Gabapentin [Neurontin] 100 mg PO BID 07/11/20 [History] Losartan Potassium 25 mg PO DAILY 07/11/20 [History] Sertraline HCl [Zoloft] 50 mg PO DAILY 07/11/20 [History] Past Medical History Cardiovascular History: Reports: Heart Failure, Hypertension Musculoskeletal History: Reports: Arthritis Neurological History: Reports: Cerebral Palsy - Past Surgical History HEENT Surgical History: Reports: Adenoidectomy, Tonsillectomy Female Surgical History: Reports: Section Social & Family History - Tobacco Use Smoking Status *Q: Unknown Ever Smoked - Caffeine Use Caffeine Use: Reports: Coffee, Soda ED ROS GENERAL - Review of Systems Review Of Systems: See Below Constitutional: Reports: No Symptoms HEENT: Reports: Other (laceration to forehead) Respiratory: Reports: No Symptoms Cardiovascular: Reports: No Symptoms Endocrine: Reports: No Symptoms GI/Abdominal: Reports: No Symptoms : Reports: No Symptoms Musculoskeletal: Reports: Foot Pain (L foot ) Skin: Reports: No Symptoms Neurological: Reports: No Symptoms, Confusion, Dizziness Psychiatric: Reports: No Symptoms Hematologic/Lymphatic: Reports: No Symptoms Immunologic: Reports: No Symptoms ED EXAM, SKIN/RASH Exam: See Below Exam Limited By: No Limitations General Appearance: Alert, WD/WN, No Apparent Distress Eye Exam: Bilateral Eye: PERRL Ears: Normal External Exam, Normal Canal, Hearing Grossly Normal, Normal TMs Nose: Normal Inspection, Normal Mucosa, No Blood Throat/Mouth: Normal Inspection, Normal Lips, Normal Teeth, Normal Gums, Normal Oropharynx, Normal Voice, No Airway Compromise Head: Other (1 cm laceration to forehead) Neck: Normal Inspection, Supple, Non-Tender, Other (Limited ROM, chronic for the patient) Respiratory/Chest: No Respiratory Distress, Lungs Clear, Normal Breath Sounds, No Accessory Muscle Use, Chest Non-Tender Cardiovascular: Regular Rate, Rhythm, No Edema, No Murmur Peripheral Pulses: 4+: Radial (R) GI/Abdominal: Soft, Non-Tender, No Distention, No Mass (Female) Exam: Deferred Rectal (Female) Exam: Deferred Back Exam: Normal Inspection, Full Range of Motion Extremities: Other (large area of hemtoma/edema to dorsum of L foot. It is very tender to touch and manipulation.) Neurological: Alert, Oriented, CN II-XII Intact, Normal Cognition, Normal Gait, Normal Reflexes, No Motor/Sensory Deficits Psychiatric: Normal Affect, Normal Mood Skin: Warm, Dry, Intact, Pallor ED SKIN PROCEDURES - Laceration/Wound Repair Forehead Appearance: Subcutaneous Skin Prep: Chlorhexidine (Hibiciens), Saline Closed with: Dermabond Lac/Wound length In cm: 1 Course - Vital Signs Last Recorded V/S: Last Vital Signs Temp 36.3 C 07/11/20 12:22 Pulse 88 07/11/20 12:22 Resp 20 07/11/20 12:22 BP 101/55 L 07/11/20 12:22 Pulse Ox - Orders/Labs/Meds Meds: Medications Discontinued Medications Generic Name Dose Route Start Last Admin Trade Name Deedee PRN Reason Stop Dose Admin Hydrocodone Bitart/Acetaminophen 1 tab 07/11/20 14:50 07/11/20 14:56 [place] 325-10 Mg PO 07/11/20 14:51 1 tab ONETIME ONE Administration - Re-Assessments/Exams Free Text/Narrative Re-Assessment/Exam: CT brain without contrast obtained and was negative. Plain film radiographs of L foot reveals acute, mildly angulated and displaced first thru 5th MT fractures of the L foot. Departure - Departure Time of Disposition: 15:30 Disposition: DC/Tfer to SNF 03 Clinical Impression: Closed fracture of metatarsal bone of left foot, Laceration - Discharge Information Instructions: Acetaminophen; Hydrocodone tablets or capsules, Walking Boot, Adult, Metatarsal Fracture Referrals: Lorelei Machado, [Primary Care Provider] - Forms: ED Department Discharge Additional Instructions: Keep CAM boot on. [place] 10/325mg 1 every 4-6 hours as needed for pain. Start miralax 17 gm once daily while taking the pain medication. Follow-up with Dr. Machado in 10 days. Sepsis Event Note (ED) - Evaluation Sepsis Screening Result: No Definite Risk - Focused Exam Vital Signs: Vital Signs Temp Pulse Resp BP 07/11/20 12:22 36.3 C 88 20 101/55 L - Problem List Review Problem List Initiated/Reviewed/Updated: Yes - Assessment/Plan Plan: Keep CAM boot on. [place] 10/325mg 1 every 4-6 hours as needed for pain. Start miralax 17 gm once daily while taking the pain medication. Follow-up with Dr. Machado in 10 days.
== END 2020-07-11 15:37 ==
LOC: VM.ED 12:20
DX: S92.312A Displaced fracture of first metatarsal bone, left foot, initial encounter for closed fracture (principal); S92.322A Displaced fracture of second metatarsal bone, left foot, initial encounter for closed fracture; S92.332A Displaced fracture of third metatarsal bone, left foot, initial encounter for closed fracture; S92.342A Displaced fracture of fourth metatarsal bone, left foot, initial encounter for closed fracture; S92.352A Displaced fracture of fifth metatarsal bone, left foot, initial encounter for closed fracture; S01.81XA Laceration without foreign body of other part of head, initial encounter; I11.0 Hypertensive heart disease with heart failure; I50.9 Heart failure, unspecified; G80.9 Cerebral palsy, unspecified; W05.0XXA Fall from non-moving wheelchair, initial encounter; Y92.129 Unspecified place in nursing home as the place of occurrence of the external cause
CPT/HCPCS: 12011; 70450; 73630; 99284; A9270; 99283